=== PATIENT | female | born 1950 | race Caucasian/White ===

== ENCOUNTER 2025-06-13 08:37 | Outpatient (AMB) | payer OTHER, SELFPAY ==
--- NOTE | 2025-06-13 08:54 | MHC.OFFVIS ---
Vital Signs 06/13/25 08:59 Height 5 ft 2 in Weight 160 lb BMI 29.3 Intake Visit Reasons: Left knee pain Intake Note: Angie is a 74 year old female who presents with complaints of progressively worsening left knee pain. She describes her pain as sharp in nature. Her pain has gotten worse over the last few years in spite of continued non operative treatments. She has failed the last 3 months of conservative treatment which has included Tylenol, anti-inflammatory medicines, physical therapy exercises and a home exercise program. At this point her left knee pain is interfering with her activities of daily living and her ability to sleep well through the night. She has had cortisone injections in the past which gave her minimal relief. She wishes to hold off on total knee replacement surgery for as long as possible. Allergies No Known Allergies Allergy (Verified 06/13/25 08:58) Medication List - Last Reconciled 06/13/25 by Wale Braxton MD alendronate 70 mg PO QWEEK losartan 100 mg PO DAILY Physical Exam Vital Signs: BMI result Body Mass Index 29.3 Const Other: Well-nourished well-developed very friendly female awake alert and oriented x3 in no acute distress Extrem Other: Left knee examination shows a minimal effusion, palpable crepitus with range of motion, pain with range of motion, no instability Results Reviewed Results Reviewed: X-rays of the patient's left knee show a healed proximal tibial plateau fracture, no hardware is present, moderate to severe degenerative changes, subchondral sclerosis, osteophyte formation, no acute bony abnormalities Assessment & Plan Assessment & Plan (1) Left knee pain: Code(s): M25.562 - Pain in left knee Category: Medical (2) Osteoarthritis of left knee: Code(s): M17.12 - Unilateral primary osteoarthritis, left knee Category: Medical Plan Ms. Helm presents with progressively worsening left knee pain due to osteoarthritis. I had a lengthy discussion with the patient regarding the treatment options. She wishes to hold off on total knee replacement surgery if at all possible. I agree with this plan. I will see if the patient's insurance company will cover a viscosupplementation injection, such as Durolane, for her left knee. I will see her back once the injection is approved. Feel free to call me at any time should questions regarding her orthopedic management arise. Thank you very much for asking me to see this very friendly patient. I spent 22 minutes in reviewing the patient's records and imaging studies, seeing the patient and documenting in the medical record. Orders: Orders XR knee LT 3V Today M25.562 - Pain in left knee Coding Level of Care Code New Pt Level 3 (27339) Complex EM visit Add On G2211 Diagnoses Left knee pain M25.562 Osteoarthritis of left knee M17.12
[2025-06-13 08:59] VITALS: BMI 29.3
== END 2025-06-13 09:17 | disposition home or self-care (01) ==
LOC: HO.HOS 08:37
PROVIDERS: PCP Internal Medicine; Visit Provider Orthopaedic Surgery
DX: M25.562 Pain in left knee (principal); M17.12 Unilateral primary osteoarthritis, left knee
CPT/HCPCS: 99213; G2211

== ENCOUNTER → 2025-06-13 08:40 | Outpatient (BNV) | payer OTHER, SELFPAY | PROVIDERS: Visit Provider Radiology Diagnostic Radiology | DX: M85.862 Other specified disorders of bone density and structure, left lower leg (principal); M17.12 Unilateral primary osteoarthritis, left knee; M25.462 Effusion, left knee | CPT/HCPCS: 73562 ==

== ENCOUNTER 2025-06-13 08:53 | Outpatient (REF) | payer OTHER, SELFPAY ==
--- NOTE | ~2025-06-13 | XR_ITS ---
EXAMINATION: XR KNEE, LEFT CLINICAL INFORMATION: M25.562 - Pain in left knee COMPARISON: None available. TECHNIQUE: 3 views of the left knee. FINDINGS: There are lucencies in the proximal tibia probably representing ghost artifact from previous hardware removal. There is an old healed fracture of the proximal tibia probably involving the lateral tibial plateau. No acute fracture or dislocation. Osteopenia and heterogeneous demineralization. There is slight valgus angulation at the knee. There is tricompartment arthritis with joint space narrowing and osteophyte formation. There is a small joint effusion. There is periosteal reaction seen adjacent to the medial proximal tibial shaft. This may be related to old trauma and hardware removal. If there is concern for infection/osteomyelitis, bone scan or MRI would be recommended. XR/XR knee LT 3V IMPRESSION: Osteopenia and heterogeneous demineralization. Probable old healed proximal tibial fracture and evidence of prior surgical hardware removal. Valgus angulation at the knee joint, tricompartment arthritis and small joint effusion. Electronically signed by: Diamante Lyle MD 06/13/2025 09:02 AM EDT
== END 2025-06-13 08:54 | disposition home or self-care (01) ==
LOC: HO.HOSX 08:53
PROVIDERS: Visit Provider Orthopaedic Surgery
DX: M17.12 Unilateral primary osteoarthritis, left knee (principal)
CPT/HCPCS: 73562; 99212

== ENCOUNTER 2025-07-06 09:28 | Outpatient (AMB) | payer OTHER, SELFPAY ==
[2025-07-06 09:33] VITALS: BMI 29.3
--- NOTE | 2025-07-06 09:33 | A.OFFVIS_ITS ---
Vital Signs 07/06/25 09:33 Height 5 ft 2 in Weight 160 lb BMI 29.3 Intake Visit Reasons: Left knee Durolane Intake Note: Angie 75 yr old female presents today for her left knee Durolane injection. Consent has been reviewed and signed. She describes her left knee pain as sharp in nature. She has failed the last 3 months of conservative treatment. She wishes to hold off on total knee replacement surgery if at all possible. Allergies No Known Allergies Allergy (Verified 07/06/25 09:38) Medication List - Last Reconciled 07/06/25 by Wale Braxton MD alendronate 70 mg PO QWEEK losartan 100 mg PO DAILY Physical Exam Vital Signs: BMI result Body Mass Index 29.3 Extrem Other: Left knee examination shows a minimal effusion, palpable crepitus with range of motion, pain with range of motion, no instability Office Procedures AMB Joint Injection/Aspiration Joint Injection/Aspiration Primary Site: Left Knee Prep: site was prepped using aseptic technique Injected: Durolane, with 3 mL of and 1% plain Lidocaine Procedure: The patient tolerated the procedure well Coding - Large joint Procedure code (CPT) selection complete Results Reviewed Results Reviewed: X-rays of the patient's left knee taken previously show joint space narrowing, subchondral sclerosis, no acute bony abnormalities Assessment & Plan Assessment & Plan (1) Osteoarthritis of left knee: Code(s): M17.12 - Unilateral primary osteoarthritis, left knee Category: Medical Plan Ms. Helm presents with left knee pain due to osteoarthritis. The risks and benefits of a left knee Durolane viscosupplementation injection were discussed at length with the patient. The patient wished to proceed. She tolerated the injection well. She will continue with her activity modifications. She will contact me prior to her follow-up appointment in 3 months should any questions or concerns arise. Feel free to call me at any time should questions regarding her orthopedic management arise. I spent 21 minutes in reviewing the patient's records and imaging studies, seeing the patient and documenting in the medical record. Orders: Orders AMB Joint Injection/Aspiration Today M17.12 - Unilateral primary oste oarthritis, left knee Coding Level of Care Code Est Pt Level 3 (53921) Complex EM visit Add On G2211 Diagnoses Osteoarthritis of left knee M17.12 CPT Codes Coding - Large joint: 58229 - Large joint ([id number])
== END 2025-07-06 09:55 | disposition home or self-care (01) ==
LOC: HO.HOS 09:28
PROVIDERS: Visit Provider Orthopaedic Surgery
DX: M17.12 Unilateral primary osteoarthritis, left knee (principal)
CPT/HCPCS: 20610; 99213

== ENCOUNTER → 2025-07-06 09:28 | Outpatient (BNVA) | payer OTHER, SELFPAY | PROVIDERS: Visit Provider Orthopaedic Surgery | DX: M17.12 Unilateral primary osteoarthritis, left knee (principal) | CPT/HCPCS: 20610; 99212; J2003; J7318 ==